=== PATIENT | female | born 1965 | race Hispanic/Latino ===

== ENCOUNTER 2019-11-06 16:38 | Observation (INO) | payer OTHER, SELFPAY ==
[2019-11-06] MEDS ORDERED: hydrALAZINE 20 MG/ML VIAL SLOW IVP SCH (19:15)
[2019-11-06] MEDS ORDERED: Acetaminophen 325 MG TAB PO PRN (19:46)
[2019-11-06] MEDS ORDERED: Guaifenesin DM 100-10/5 ML UDCUP PO PRN (19:46)
[2019-11-06] MEDS ORDERED: Senokot S 8.6-50 MG TAB PO PRN (19:46)
[2019-11-06] MEDS ORDERED: Bisacodyl 5 MG TAB PO PRN (19:46)
[2019-11-06] MEDS ORDERED: Promethazine HCl 12.5 MG in Sodium Chloride 0.9% 50 ML IVPB PRN (19:48)
[2019-11-06] MEDS ORDERED: Ondansetron PF 4 MG/2 ML Vial IVP PRN (19:48)
[2019-11-06] MEDS ORDERED: Labetalol HCl 100 MG/20 ML VIAL SLOW IVP PRN (19:48)
[2019-11-06] MEDS ORDERED: cloNIDine 0.1 MG TAB PO PRN (19:48)
[2019-11-06] MEDS ORDERED: Morphine 2 MG/ML SYRINGE SLOW IVP PRN (19:48)
[2019-11-06 19:53] VITALS: BMI 33.6
--- NOTE | 2019-11-06 19:53 | PDOC.HHP ---
Hospitalist HPI - History of Present Illness Chest pain History of Present Illness: Patient is a 54 year old female with no known PMH who presents as transfer for substernal chest pain, began yesterday but now resolved, sob and anxiety symptoms, reports some stressors but will not go into details, denies cardiac history, takes no meds, sees no doctors. At outside facility, UDS positive for cocaine and metamphetamines, patient denies/refuses to discuss. LFTs elevated. tni and d dimer up. no sick contacts. admitted for covid rule out Hospitalist ROS - Review of Systems Constitutional: denies: fever, chills Eyes: denies: pain, vision change ENT: denies: ear pain, ear discharge, mouth swelling, throat pain Respiratory: reports: cough, shortness of breath Cardiovascular: reports: chest pain Gastrointestinal: denies: nausea, vomiting Genitourinary: denies: dysuria, frequency Musculoskeletal: denies: neck pain, shoulder pain, arm pain, back pain Skin: denies: rash, lesions Neurological: denies: weakness, numbness All other systems reviewed; all pertinent +/- noted in HPI/Subj Hospitalist History - Past Medical History Other Medical History: denies - Past Surgical History Other Surgical History: cholecystectomy - Family History Other Family History: family with DM and HTN - Social History Other Social History: denies tobacco, drug use very rare alcohol use - Exam General Appearance: NAD, awake alert Eye: PERRL, anicteric sclera ENT: normocephalic atraumatic, no oropharyngeal lesions, moist mucosa Neck: supple, symmetric, no JVD, no thyromegaly, no lymphadenopathy, no carotid bruit Heart: RRR, no murmur, no gallops, no rubs, normal peripheral pulses Respiratory: CTAB, no wheezes, no rales, no ronchi, normal chest expansion, no tachypnea, normal percussion Gastrointestinal: soft, non-tender, non-distended, normal bowel sounds, no palpable masses, no hepatomegaly, no splenomegaly, no bruit Extremities: no cyanosis, no clubbing, no edema Skin: normal turgor, no lesions, no rashes Neurological: cranial nerve grossly intact, normal sensation to touch, no weakness, no focal deficits, no new deficit Musculoskeletal: normal tone, normal strength, no muscle wasting Psychiatric: normal affect, normal behavior, A&O x 3 Hospitalist Results - Labs Result Diagrams: 11/07/19 05:13 11/07/19 05:13 Lab results: Troponin I 0.050 ng/mL (< 0.028) H 11/06/19 19:12 Additional comment: outside labs and imagingreviewed - EKG Interpretation EKG: reviewed no stemi Hospitalist H&P A/P - Plan Plan: 54F admitted for # chest pain # shortness of breath # elevated D dimer # elevated LFTs # anxiety - CXR and CT without PE or other acute radiologic findings - admit to telemetry, trend troponin, covid rule out ordered, no pneumonia on imaging - counselling on cessation of drugs recommended, although patient continues to deny drug use and reports home issues but refuses to elaborate
[2019-11-06] MEDS: Famotidine 20 MG TAB PO SCH (20:13)
[2019-11-06] MEDS ORDERED: Atorvastatin Calcium 40 MG TAB PO SCH (21:00)
[2019-11-06 22:46] LABS: Troponin I 0.051 ng/mL (< 0.028)
[2019-11-06] MEDS: hydrALAZINE 20 MG/ML VIAL SLOW IVP PRN (23:39)
[2019-11-06] MEDS: HYDROcodone/Acetaminophen 5/325 mg Tablet PO PRN (23:39)
[2019-11-07 05:29] LABS: #Basophils 0.1 thou/uL (0.0-0.2); #Eosinphils 0.3 thou/uL (0.0-0.7); #Lymphocytes 1.5 thou/uL (1.20-3.40); #Monocytes 0.5 thou/uL (0.11-0.59); %Basophils 0.8 % (0.0-1.0); %Lymphocytes 18.5 % (21.0-51.0); %Monocytes 5.6 % (0.0-10.0); %Neutrophils 72.1 % (42.0-75.0); Mean Corpuscular HGB CONC 32.3 g/dL (32.0-36.0); Mean Corpuscular Hemoglobin 32.5 pg (27.0-31.0); Mean Platelet Volume 8.2 fL (7.4-10.4); Platelet Count 221 thou/uL (130-400); RBC Distribution Width 12.4 % (11.5-14.5); White Blood Cell (WBC) Count 8.4 thou/uL (4.8-10.8)
[2019-11-07 05:48] LABS: Anion Gap 16 mmol/L (10-20); BUN (Urea Nitrogen) 7 mg/dL (9.8-20.1); Calc. Creatinine Clearance 101 mL/min (70-130); Calcium 8.7 mg/dL (7.8-10.44); Carbon Dioxide 23 mmol/L (22-29); Chloride 104 mmol/L (98-107); Estimated GFR-MDRD 69; Glucose 105 mg/dL (70-105); Potassium 3.3 mmol/L (3.5-5.1); Sodium 140 mmol/L (136-145)
[2019-11-07] MEDS ORDERED: Carvedilol 3.125 MG TAB PO SCH (08:00)
[2019-11-07] MEDS: Famotidine 20 MG TAB PO SCH (08:47)
[2019-11-07] MEDS ORDERED: Polyethylene Glycol 3350 17 GM Packet PO SCH (09:00)
[2019-11-07] MEDS ORDERED: Enoxaparin Sodium 40 MG/0.4 ML SYRINGE SC SCH (09:00)
[2019-11-07] MEDS ORDERED: Aspirin 81 mg Enteric Coated Tablet PO SCH (09:00)
[2019-11-07] MEDS: hydrALAZINE 20 MG/ML VIAL SLOW IVP PRN (09:01)
[2019-11-07] MEDS ORDERED: ADENOSINE 60 MG/20 ML VIAL ONE (09:18)
[2019-11-07] MEDS: HYDROcodone/Acetaminophen 5/325 mg Tablet PO PRN (11:16)
[2019-11-07 11:20] VITALS: BP 153/95; TEMP 98.2
--- NOTE | 2019-11-07 14:31 | NM ---
Radionucleotide stress only myocardial perfusion scan with CT attenuation correction and SPECT imagin g Left ventricular wall motion evaluation and ejection fraction HISTORY: Chest pain. FINDINGS: Adenosine protocol. Homogeneous uptake of radiotracer throughout the left ventricular myoca rdium. No focal perfusion defect or reversibility evident. QGS analysis of gated SPECT images shows no focal wall motion abnormalities. Ejection fraction calcul ated at 62%. IMPRESSION : Normal perfusion scan. Normal LVEF.
--- NOTE | 2019-11-08 01:59 | DIS ---
DATE OF ADMISSION: 11/06/2019 DATE OF DISCHARGE: 11/07/2019 DISCHARGE DIAGNOSES: 1. Chest pain due to cocaine use. 2. Shortness of breath. 3. Anxiety. 4. Elevated D-dimer. 5. Elevated LFTs. HISTORY OF PRESENT ILLNESS AND HOSPITAL COURSE: The patient is a 54-year-old female with no known past medical history, who was transferred to our facility for evaluation of substernal chest pain that started yesterday after using cocaine. Her urine drug screen was positive for cocaine and methamphetamines. She was also found to be short of breath and hypertensive. Serial troponins were obtained and were slightly elevated. Subsequent pharmacologic stress test was done and did not show any evidence of reversible ischemia. The patient was counseled against cocaine use. I recommend outpatient followup with PCP in 1 week. Job ID: [id number]
== END 2019-11-07 16:40 | disposition home or self-care (01) ==
LOC: 2SW 16:38
PROVIDERS: ADMIT Internal Medicine; ATTEND Internal Medicine
DX: F14.988 Cocaine use, unspecified with other cocaine-induced disorder (principal); R07.2 Precordial pain; R06.02 Shortness of breath; F41.9 Anxiety disorder, unspecified; R79.1 Abnormal coagulation profile; R79.89 Other specified abnormal findings of blood chemistry; I10 Essential (primary) hypertension; Z20.828 Contact with and (suspected) exposure to other viral communicable diseases
CPT/HCPCS: 36415; 78452; 80048; 85025; 93017; 96372; 96374; 96376; A9500; G0378; J0153; J0360; J1650

== ENCOUNTER 2019-12-31 07:39 | Emergency (ER) | payer OTHER, SELFPAY ==
[2019-12-31] MEDS ORDERED: Enoxaparin Sodium 80 MG/0.8 ML SYRINGE ONE (08:46)
[2019-12-31] MEDS ORDERED: Lorazepam 2 MG/ML VIAL ONE (09:49)
[2019-12-31 10:25] LABS: CKMB 3.4 ng/mL (0-6.6)
--- NOTE | 2019-12-31 10:56 | CT ---
CTA CHEST WITH CONTRAST: INDICATIONS: Chest pain. Cough. Tachycardia. TECHNIQUE: Axial tomograms obtained following an angio protocol with multiplanar reconstruction and 3D post proc essing FINDINGS: The pulmonary arteries show adequate opacification. There is dense streak artifact from the dense opa cification of the superior vena cava, which is seen in the right proximal pulmonary arteries, however there is no evidence of filling defect or pulmonary embolus identified. The lungs appear clear. No evidence of infiltrate or effusion. Review of the lung riley reveals a small, 4 to 5 mm nodule within the minor fissure in the right mid lung field, seen on axial image 49. The mediastinum is unremarkable. The upper abdomen is unremarkable. The osseous structures are unrema rkable. IMPRESSION: 1. No evidence of pulmonary embolus. 2. No evidence of acute lung infiltrate. 3. Small pulmonary nodule in the right mid lung. Recommend follow-up noncontrast chest CT in six months to confirm stability. CODE LN POS: JULISSA
[2019-12-31] MEDS ORDERED: Iopamidol-370 76% 500 ML 1 ML ONE (14:16)
--- NOTE | 2020-01-01 12:01 | EKG ---
Test Reason : CP Blood Pressure : / mmHG Vent. Rate : 105 BPM Atrial Rate : 105 BPM P-R Int : 158 ms QRS Dur : 074 ms QT Int : 370 ms P-R-T Axes : 008 -13 003 degrees QTc Int : 489 ms Sinus tachycardia Minimal voltage criteria for LVH, may be normal variant Cannot rule out Anterior infarct , age undetermined Abnormal ECG Confirmed by DANIELITO MUNIZ, GERARDO ([id number]), electronic news gathering editor MEERA GOFF ([id number]) on 01/01/2020 12:01:16 PM Referred By: Confirmed By:GERARDO ESTEVES MD
[2020-01-01 13:53] LABS: SARS-CoV-2 MS2 Positive; SARS-CoV-2 N Gene Negative; SARS-CoV-2 S Gene Negative; SARS-CoV-2 orf1ab Negative
== END 2019-12-31 14:13 | disposition home or self-care (01) ==
LOC: ERS 07:39
DX: R07.9 Chest pain, unspecified (principal); F10.10 Alcohol abuse, uncomplicated; F14.10 Cocaine abuse, uncomplicated; K29.70 Gastritis, unspecified, without bleeding
CPT/HCPCS: 36415; 71275; 82553; 87635; 93005; 96372; 96374; J1650; J2060; Q9967; U0003